=== PATIENT | male | born 1980 | race Caucasian/White ===

== ENCOUNTER → 2024-03-05 10:07 | Outpatient (REF) | payer BC, SELFPAY | LOC: RAD 10:07 | PROVIDERS: ATTENDING PHYSICIAN Family Medicine | DX: R91.1 Solitary pulmonary nodule (principal) | CPT/HCPCS: 71250 ==

== ENCOUNTER 2024-05-21 22:06 | Emergency (ER) | payer BC, SELFPAY ==
[2024-05-21 22:07] VITALS: BP 129/67
--- NOTE | 2024-05-21 22:42 | ED.GENMED ---
History of Present Illness
General
Chief Complaint: Fever
Source: patient
Exam Limitations: none
Time Seen by Provider: 05/21/24 22:29
Nursing documentation reviewed up to this point in time: agreed with
History of Present Illness
History of Present Illness:
43-year-old male with history of DVT on Eliquis, factor II gene mutation, presents stating he has had a cough for 3 days. He took a home COVID test yesterday which was negative, he saw his PCP yesterday and was influenza negative. He reports fever
of 105 forehead at home earlier this evening, took Mucinex and Tylenol 1000 mg and fever came down to 102.
Pt also mentions he gets irregular heart beats for months. Sometimes a lot, some times occasional and he feels his pulse and there is no pulse with the irregular beats. Denies CP with the palpitations
Past History
Past History
ED Past Medical History: Other (DVT, Factor II gene mutation)
ED Past Surgical History: Tonsilectomy
Social History
Tobacco: Non-smoker
Alcohol: Occasional
Personal:
Living: with family
Employment: Employed
Review of Systems
Review of Systems
Allergies reviewed?: Yes
All Other Systems: ROS reviewed and negative except as documented in HPI and ROS
Constitutional: Reports fever
EENT: Denies sore throat
Respiratory: Reports cough; Denies trouble breathing
Cardiac: Reports no symptoms
ABD/GI: Reports no symptoms
: Reports no symptoms
Musculoskeletal: Reports no symptoms
Skin: Reports no symptoms
Neurological: Reports no symptoms
Phy Exam
Physical Exam
Physical Exam:
GENERAL: No acute distress. A&Ox3.
CONSTITUTIONAL: Afebrile.
EYES: clear, conjunctivae normal
ENMT: moist mucus membranes, Pharynx nl
RESPIRATORY: Regular respirations, nonlabored, lungs clear.
CARDIOVASCULAR: Regular rate and rhythm, no murmurs, no rubs.
GI: Soft, nontender
MUSCULOSKELETAL: Moves with ease. Well perfused.
SKIN: Warm, dry, pink
PSYCH: Normal mood and affect. Well kept, interactive and appropriate
NEUROLOGIC: Awake, alert and oriented. No focal neurological deficits
Course
Orders/Labs/Results
Orders:
Orders
05/21/24 22:30
CR Chest - 2 Views Urgent
Comment:
Reason For Exam: cough, fever
05/21/24 22:55
Complete Blood Count/With Diff Urgent
Comprehensive Metabolic Panel Urgent
05/21/24 23:44
Doxycycline [Vibramycin] 100 mg PO NOW STA
Abnormal Lab Results
05/21/24
22:55
Absolute Monos (auto) 0.8 H 10^3/uL
(0.1-0.6)
Lymphocytes % 17.1 L %
(20.5-51.1)
Monocytes % 10.2 H %
(1.7-9.3)
Sodium 133 L mmol/L
(135-145)
Carbon Dioxide 20 L mmol/L
(22-30)
Glucose 119 H mg/dl
(70-99)
Calcium 8.3 L mg/dl
(8.4-10.2)
05/21/24 22:55
05/21/24 22:55
Vital Signs
Initial and Last Documented VS:
Initial Vital Signs
Temp Pulse Resp BP Pulse Ox
102.1 F H 90 22 129/67 94
05/21/24 22:07 05/21/24 22:07 05/21/24 22:07 05/21/24 22:07 05/21/24 22:07
Last Documented Vital Signs
Temp Pulse Resp BP Pulse Ox
99.4 F 78 20 113/67 95
05/21/24 23:45 05/21/24 23:00 05/21/24 23:00 05/21/24 23:00 05/21/24 23:28
MDM/Problems Addressed
Differential Diagnosis Includes:
PNA, bronchitis
MDM/Problems Addressed:
43-year-old male with history of DVT on Eliquis, factor II gene mutation, presents stating he has had a cough for 3 days. He took a home COVID test yesterday which was negative, he saw his PCP yesterday and was influenza negative. He reports fever
of 105 forehead at home earlier this evening, took Mucinex and Tylenol 1000 mg and fever came down to 102.
Pt also mentions he gets irregular heart beats for months. Sometimes a lot, some times occasional and he feels his pulse and there is no pulse with the irregular beats. Denies CP with the palpitations
CBC normal
CMP with no clinically significant abnormality
Chest x-ray: Haziness in right lower lobe suspicious for pneumonia, reviewed with Dr. Lucero who agrees
Doxycycline rx sent to his pharmacy
Occasional unifocal PVCs noted on monitor, copy of strip given to pt
Pt requests cardiology referral, referred to [facility] for cardiac workup
Mg and TSH added to labs.
*Critical Care Note
Total Time (30-74mins, 75-104mins- exclusive of procedures): Not Applicable
ED Attending Note
-
Portions of this chart may have been created with voice recognition software.� Occasional wrong word or��sound alike� substitutions may have occurred due to the inherent limitations of voice recognition software.
Discharge Plan
Departure
Patient Disposition: Home (Routine Discharge)
Date of Disposition: 05/21/24
Time of Disposition: 23:46
Patient with high blood pressure during this ER visit?: No
Condition: Good
Discharge Problem:
Pneumonia
Instructions: Fever, Adult (DC), Pneumonia, Adult ED
Prescriptions:
New
doxycycline hyclate 100 mg capsule
100 mg PO BID Qty: 20 0RF
No Action
Eliquis 5 MG tablet
2.5 mg PO BID
Referrals:
Holly Mares MD [Family Provider] - Call in 1-3 days for appt
Activity Restrictions/Additional Instructions:
As we discussed, I sent a prescription to your pharmacy for the antibiotic doxycycline to take twice a day for 10 days.
Continue Tylenol as needed for fever.
Drink plenty of fluids
Interventions
Interventions:
*Risk Screen - Suicide Last Done: 05/21/24 22:07
*General Assessment Last Done: 05/21/24 22:07
*Neglect/Abuse Screening Last Done: 05/21/24 22:07
ED- Fall Risk Assessment Last Done: 05/21/24 23:28
*ED COVID-19 Vaccine History Last Done: 05/21/24 23:28
ED- Neurological Assessment Last Done: 05/21/24 23:28
ED-Skin Assessment Last Done: 05/21/24 23:28
Discharge Date and Time
Print Language: ITALIAN
[2024-05-21 22:54] VITALS: BMI 31.0
[2024-05-21 23:00] VITALS: BP 113/67
[2024-05-21 23:07] LABS: % Basophils 0.4 % (0-2); % Eosinophils 0.1 % (0-6); % Immature Granulocytes 0.1 % (0-0.5); % Lymphocytes 17.1 % (20.5-51.1); % Monocytes 10.2 % (1.7-9.3); % Neutrophils 72.1 % (42.2-75.2); Absolute Lymphocytes 1.4 10^3/uL (1.2-3.4); Absolute Monocytes 0.8 10^3/uL (0.1-0.6); Absolute Neutrophils 5.9 10^3/uL (1.4-6.5); Hematocrit 39.8 % (39.0-52.0); Hemoglobin 13.5 g/dL (13.0-18.0); Mean Corp Hgb Conc. 33.9 g/dL (33.0-37.0); Mean Corpuscular Hgb 28.2 pg (27.0-31.0); Mean Corpuscular Volume 83.3 fL (80.0-94.0); Mean Platelet Volume 8.7 fL (7.4-10.4); Nucleated Red Blood Cells % 0 % (-); Platelet Count 179 10^3/uL (130-400); Red Blood Cell Count 4.78 10^6/uL (4.70-6.10); Red Cell Dist. Width 12.4 % (11.5-14.5); White Blood Cell Count 8.2 10^3/uL (4.8-10.8)
[2024-05-21 23:38] LABS: ALT (SGPT) 24 U/L (0-50); AST (SGOT) 28 U/L (17-59); Albumin 3.9 g/dl (3.5-5.0); Alkaline Phosphatase 40 U/L (38-126); Blood Urea Nitrogen 16 mg/dl (9-20); Calcium 8.3 mg/dl (8.4-10.2); Carbon Dioxide 20 mmol/L (22-30); Chloride 101 mmol/L (98-107); Estimated Creatinine Clearance 91 ml/min; Glucose 119 mg/dl (70-99); Potassium 3.8 mmol/L (3.5-5.1); Sodium 133 mmol/L (135-145); Total Bilirubin 0.6 mg/dl (0.2-1.3); Total Protein 6.3 g/dl (6.3-8.2); eGFR > 60.00
[2024-05-21] MEDS: VIBRAMYCIN 100 MG PO (23:47)
[2024-05-22 00:09] LABS: Magnesium 1.5 mg/dl (1.6-2.3)
[2024-05-22 00:44] LABS: TSH 2.25 uIU/ml (0.47-4.68)
== END 2024-05-22 00:01 | disposition home or self-care (01) ==
LOC: EMR 22:06
PROVIDERS: Registered Nurse; EMERGENCY PHYSICIAN Emergency Medicine; FAMILY PHYSICIAN Family Medicine
DX: J18.9 Pneumonia, unspecified organism (principal); D68.2 Hereditary deficiency of other clotting factors; I49.3 Ventricular premature depolarization; Z79.01 Long term (current) use of anticoagulants; Z86.718 Personal history of other venous thrombosis and embolism
CPT/HCPCS: 99283; 71046; 80053; 83735; 84443; 85025

== ENCOUNTER → 2024-06-17 13:37 | Outpatient (REF) | payer BC, SELFPAY | LOC: RCS 13:37 | PROVIDERS: ATTENDING PHYSICIAN Internal Medicine Cardiovascular Disease; FAMILY PHYSICIAN Family Medicine | DX: R00.2 Palpitations (principal); I49.3 Ventricular premature depolarization | CPT/HCPCS: 93306 ==

== ENCOUNTER → 2024-10-17 11:03 | Outpatient (REF) | payer SELFPAY | LOC: HWRAD 11:03 | PROVIDERS: ATTENDING PHYSICIAN Internal Medicine Cardiovascular Disease; FAMILY PHYSICIAN Family Medicine | DX: R00.2 Palpitations (principal); E78.5 Hyperlipidemia, unspecified | CPT/HCPCS: 75571 ==